=== PATIENT | male | born 2000 | race Caucasian/White ===

== ENCOUNTER 2019-03-12 20:10 | Observation (INO) ==
[2019-03-12] MEDS ORDERED: SODIUM CHLORIDE 0.9% 1000ML 1,000 ML IV ONE (20:30)
[2019-03-12] MEDS ORDERED: ACETAMINOPHEN 500 MG TAB PO STA (20:31)
[2019-03-12] MEDS ORDERED: KETOROLAC TROMETHAMINE 15 MG/ML VIAL IV STA (20:31)
[2019-03-12 20:51] LABS: Hematocrit (blood only) 42.8 % (42-52); Mean Corpuscular Hemoglobin 32.4 pg (25-34); Mean Corpuscular Volume 92.4 fL (80-100); Mean Platelet Volume 9.7 fL (7.4-10.4); Platelet Count 180 K/uL (130-400); RDW Coefficient of Variation 12.8 % (11.5-14.5); RDW Standard Deviation 43.1 fL (36.4-46.3); Red Blood Count 4.63 M/uL (4.7-6.1); White Blood Count 3.79 K/uL (4.8-10.8)
--- NOTE | 2019-03-12 20:58 | Emergency Department Note ---
Entered by Ariane Arzate acting as a scribe for Jax Negron MD History of Present Illness General Chief complaint: Illness Stated complaint: HAD MONO PAST MONTH Time Seen by Provider: 03/12/19 20:21 Source: patient History of Present Illness Onset (ago): day(s) 3 Location: mouth (throat) Severity: similar to prior episodes Pain Consistency: + other (worsening ) Maximum Pain Intensity: 5 Quality: + other (sore) Exacerbated By: + other (swallowing) Associated symptoms: + cough and + other (positive worsening fatigue; positive worsening congestion); no fever/chills The patient is a 18 year old male who presents to the Emergency Room with complaints of worsening sore throat that began 3 days prior to arrival. He states that this is similar to his previous sore throat when he had mononucleosis last month. The patient states that this pain is exacerbated with swallowing. The patient reports a cough during this time. The patient states that during this time he has had worsening fatigue and congestion. He denies a fever. The patient states that he has not been around anyone with similar symptoms. The patient reports that he is no longer on any antibiotics or steroids currently. The patient states that he was seen today at [facility] where his strep and flu test were negative. He was referred to the ED from [facility]. Home Medications Home Medications Medication Instructions Recorded Confirmed Type triamcinolone acetonide 0.025 % 1 appln TOP BID #80 gm 11/27/18 03/12/19 Rx topical cream dextromethorphan polistirex 10 ml PO Q12H PRN 03/12/19 03/12/19 History [Delsybernabe 12 hour] minocycline 50 mg PO BID 03/12/19 03/12/19 History vsrxnfskd-TB-rtpyowyq-guaifen 0 ml PO DIRECTED PRN 03/12/19 03/12/19 History [Lisette DayQuil Severe Cold-Flu] Allergies Allergy/AdvReac Type Severity Reaction Status Date / Time Penicillins Allergy Unknown Unknown Verified 03/12/19 20:58 Past Med/Surg History Medical History Mononucleosis Surgical History History of removal of cyst History of wisdom tooth extraction Family History Uncle Family history of melanoma Social History Preferred Language: Persian Feels Safe at Home: Yes Smoking Status: Current every day smoker Tobacco Type: e-cigarettes ; Hx Alcohol Use: Yes (Socially) Review of Systems See HPI for pertinent positives & negatives. and A total of 10 systems reviewed and were otherwise negative Physical Exam Vital Signs Vital Signs - 24 hr 03/12/19 20:11 03/12/19 22:00 Temperature 36.6 C Temperature Source Oral Pulse Rate 122 H Pulse Rate [Apical] 85 Pulse Rhythm Regular Pulse Strength Normal Respiratory Rate 22 18 Respiratory Effort / Characteristics Non-Labored Spontaneous Respiratory Depth Normal Blood Pressure 171/83 H Blood Pressure [Left Arm] 140/96 Blood Pressure Mean 112 Blood Pressure Mean [Left Arm] 110 Blood Pressure Position Sitting Pulse Oximetry 100 98 Oxygen Delivery Method Room Air Room Air Sepsis Recent Fever Within 48 Hours No Sepsis Action Taken by Nursing No Action Required GENERAL: Patient is in no acute distress. Voice is hoarse. HEENT: No acute trauma, normocephalic atraumatic, mucous membranes moist, no mild congestion, no scleral icterus. No throat erythema or exudate. TMs clear bilaterally. NECK: No stridor, no adenopathy, no meningismus, trachea is midline. No pain to move the trachea side to side. LUNGS: Clear to auscultation bilaterally, no wheeze, no rhonchi, breath sounds equal. HEART: Mildly tachycardic with regular rhythm. No murmurs. ABDOMEN: Soft, nontender, bowel sounds positive, no hernias, no peritonitis. EXTREMITIES: No cyanosis or edema, full range of motion of all the joints with out pain or difficulty, no signs for acute trauma. NEUROLOGIC: Oriented x 3, no acute motor or sensory deficits, no focal weakness. SKIN: No rash, no jaundice, no diaphoresis. Course Course 2023: Past medical records reviewed. The patient was evaluated in room B2. A complete history and physical exam was performed. 2204: I checked on and updated the patient. 2213: I discussed the case with pharmacy who will prepare medication to numb the patient's throat. 2229: I discussed the case with Dr. Eastman-Hematology Oncology who recommends that the patient be further evaluated by the hospitalist. 2234: I discussed the case with Dr. Toth-[facility] Hospitalist who accepts the patient for further evaluation. 2248: I checked on and updated the patient. He is in agreement with the treatment plan. The ED national secretary's are attempting to get some information from [facility] where he was recently admitted for mono. This will be helpful for comparison purposes. Administered Medications Lidocaine HCl 60 ml/Diphenhydramine HCl 150 mg/ Al Hydrox/Mg Hydrox/Simethicone 60 ml/ Glycerin 60 ml/ BARCODE IDENTIFIER 1 ea 0 ml MT QID PRN PRN Reason: MOUTH PAIN Stop: 04/11/19 22:14 Last Admin: 03/12/19 22:47 Dose: 10 ml Documented by: [id number] Discontinued Medications Acetaminophen (Tylenol) 1,000 mg PO NOW STA Stop: 03/12/19 20:32 Last Admin: 03/12/19 20:47 Dose: 1,000 mg Documented by: [id number] Dexamethasone Sodium Phosphate (Decadron Pf) 8 mg IV NOW ONE Stop: 03/12/19 22:12 Last Admin: 03/12/19 22:47 Dose: 8 mg Documented by: [id number] Sodium Chloride (Nss 1000ml) 1,000 mls @ 999 mls/hr IV .Q1H1M ONE Stop: 03/12/19 21:30 Last Infusion: 03/12/19 21:53 Dose: 0 mls/hr Documented by: [id number] Admin: 03/12/19 20:47 Dose: 999 mls/hr Documented by: [id number] Lactated Ringer's (Lr) 1,000 mls @ 999 mls/hr IV .Q1H1M STA Stop: 03/12/19 22:15 Last Admin: 03/12/19 22:21 Dose: 999 mls/hr Documented by: [id number] Ketorolac Tromethamine (Toradol) 15 mg IV NOW STA Stop: 03/12/19 20:32 Last Admin: 03/12/19 20:47 Dose: 15 mg Documented by: [id number] Medical Decision Making Differential Diagnosis Differential diagnoses include influenza, flu-like illness, pneumonia, bronchitis, sinusitis, URI, dehydration, and others were considered. Medical Records Attestation: I reviewed the patient's medical records. Home Medications Current Medication List: was personally reviewed by me Laboratory Data Attestation: I reviewed the patient's lab results. Result diagrams: 03/12/19 20:30 03/12/19 20:30 Lab Results 03/12/19 03/12/19 03/12/19 Range/Units 20:30 20:30 20:59 WBC 3.79 L (4.8-10.8) K/uL RBC 4.63 L (4.7-6.1) M/uL Hgb 15.0 (14.0-18.0) g/dL Hct 42.8 (42-52) % MCV 92.4 (80-100) fL MCH 32.4 (25-34) pg MCHC 35.0 (32-36) g/dL RDW Std Deviation 43.1 (36.4-46.3) fL RDW Coeff of Guillermo 12.8 (11.5-14.5) % Plt Count 180 (130-400) K/uL MPV 9.7 (7.4-10.4) fL Neutrophils % (Manual) 12.5 % Lymphocytes % (Manual) 49.1 % Reactive Lymphs % (Man) 22.3 % Monocytes % (Manual) 11.6 % Eosinophils % (Manual) 1.8 % Basophils % (Manual) 2.7 % Neutrophils # (Manual) 0.47 L (1.4-6.5) K/uL Total Absolute Neuts 0.47 L* (1.4-6.5) K/uL Lymphocytes # (Manual) 1.86 (1.2-3.4) K/uL Reactive Lymphs # 0.85 K/uL Total Abs Lymphocytes 2.71 (1.2-3.4) K/uL Monocytes # (Manual) 0.44 (0.11-0.59) K/uL Eosinophils # (Manual) 0.07 (0-0.5) K/uL Basophils # (Manual) 0.10 (0-0.2) K/uL Sodium 139 (136-145) mmol/L Potassium 3.4 L (3.5-5.1) mmol/L Chloride 104 (98-107) mmol/L Carbon Dioxide 30 (21-32) mmol/L Anion Gap 5.0 (3-11) BUN 12 (7-18) mg/dl Creatinine 1.06 (0.6-1.4) mg/dl Est Cr Clr Drug Dosing 116.7 ml/min Est GFR ( Amer) 117.3 Est GFR (Non-Af Amer) 101.2 BUN/Creatinine Ratio 11.0 (10-20) Glucose 105 H (70-99) mg/dl Calcium 9.2 (8.5-10.1) mg/dl Magnesium 2.0 (1.8-2.4) mg/dl Total Bilirubin 0.4 (0.2-1) mg/dl AST 21 (15-37) U/L ALT 37 (12-78) U/L Alkaline Phosphatase 96 (45-117) U/L Total Protein 8.6 H (6.4-8.2) gm/dl Albumin 3.8 (3.4-5.0) gm/dl Globulin 4.8 H (2.5-4.0) gm/dl Albumin/Globulin Ratio 0.8 L (0.9-2) Influenza Type A (PCR) Neg for Influ A (Neg) Influenza Type B (PCR) Neg for Influ B (Neg) Imaging Data Radiologist's Impression: Radiology results as stated below per my review and the radiologist's interpretation: XR soft tissue neck TECHNIQUE: AP and lateral soft tissue neck FINDINGS: Normal prevertebral soft tissues. No distention of the hypopharynx. The epiglottis is normal. IMPRESSION: Normal study. ACT 112: Negative or not required by law. The above report was generated using voice recognition software. It may contain grammatical, syntax or spelling errors. Electronically signed by: Chandu Ramos M.D. 03/12/2019 9:17 PM XR chest 1V portable CLINICAL HISTORY: cough dyspnea COMPARISON STUDY: No previous studies for comparison. FINDINGS: The bones soft tissues and hemidiaphragms are normal. The cardiomediastinal silhouette is normal. The lungs are clear. The pulmonary vasculature is normal. IMPRESSION: Negative chest. ACT 112: Negative or not required by law. The above report was generated using voice recognition software. It may contain grammatical, syntax or spelling errors. Electronically signed by: Chandu Ramos M.D. 03/12/2019 9:16 PM Blood Pressure Blood Pressure Findings: Elevated blood pressure Blood Pressure Disposition: further management by hospitalist MDM Narrative There is no leukocytosis, in fact, the white count is low. The white blood cell count differential shows evidence for neutropenia. No anemia. There was a normal platelet count. No significant electrolyte abnormality or kidney failure. No worrisome liver enzyme elevation. Influenza testing via PCR was negative. Chest film did not show pneumonia or CHF. Soft tissue neck film did not show any evidence for epiglottitis or significant airway narrowing. On exam, the patient had a hoarse sounding voice. He was not toxic, he was not febrile. He was slightly tachycardic upon arrival. Patient received IV saline 1 L, he was then given 1 L of lactated Ringer's. He was given IV Toradol, IV Decadron and oral Tylenol. He seems to be resting comfortably. I did speak with the chip loft worker motion picture scene builder because of the neutropenia. A hosp ital stay for further work-up was felt warranted. The cause for the neutropenia is unclear. Given his current viral illness and his recent mono diagnosis, this may all just be viral suppression. Leukemia is a thought of course. I did speak to the patient, I talked with case management. The on-call hospitalist was consulted. Impression & Plan Neutropenia, Flu-like symptoms, Acute sore throat, Acute dehydration, Tachycardia Discharge Plan Visit Data Chief Complaint: Illness Stated Complaint: HAD MONO PAST MONTH ED Provider: Jax Negron Discharge Problem: Neutropenia, Flu-like symptoms, Acute sore throat, Acute dehydration, Tachycardia Patient Disposition: Being Evaluated by Hospitalist Condition: Good Forms Stand Alone Forms: Work/School Release (ED), My [facility], Important Visit Information Prescriptions Prescriptions: No Action triamcinolone acetonide 0.025 % cream 1 appln TOP BID Qty: 80 RF: 0 dextromethorphan polistirex [Delsym 12 hour] 30 mg/5 mL Suspension,Extended Rel 12 Hr 10 ml PO Q12H PRN (Reason: Cough) RF: 0 minocycline 50 mg Tablet 50 mg PO BID RF: 0 Vicks DayQuil Severe Cold-Flu 0-59-537-200 mg/15 mL Liquid 0 ml PO DIRECTED PRN (Reason: Cold/Flu Symptoms) RF: 0 Referrals Referrals: [place] [Primary Care Provider] - Discharge Problem: Neutropenia Qualifiers: Neutropenia type: unspecified Qualified Code(s): D70.9 - Neutropenia, unspecified The scribe's documentation has been prepared under my direction and personally reviewed by me in its entirety. I confirm that the note above accurately reflects all work, treatment, procedures, and medical decision making performed by me.
[2019-03-12 21:08] LABS: Albumin Level 3.8 gm/dl (3.4-5.0); Calcium 9.2 mg/dl (8.5-10.1); Creatinine Clr Calc Pharmacy 116.7 ml/min; Est GFR (African American) 117.3; Est GFR (Non-African American) 101.2; Potassium 3.4 mmol/L (3.5-5.1)
[2019-03-12 21:10] LABS: Albumin Globulin Ratio 0.8 (0.9-2); Bilirubin,Total 0.4 mg/dl (0.2-1); Globulin 4.8 gm/dl (2.5-4.0); Total Protein 8.6 gm/dl (6.4-8.2)
[2019-03-12] MEDS ORDERED: LACTATED RINGER'S 1,000 ML IV STA (21:15)
--- NOTE | 2019-03-12 21:17 | XRay Report ---
XR chest 1V portable CLINICAL HISTORY: cough dyspnea COMPARISON STUDY: No previous studies for comparison. FINDINGS: The bones soft tissues and hemidiaphragms are normal. The cardiomediastinal silhouette is n ormal. The lungs are clear. The pulmonary vasculature is normal. IMPRESSION: Negative chest. ACT 112: Negative or not required by law. The above report was generated using voice recognition software. It may contain grammatical, syntax or spelling errors. Electronically signed by: Chandu Ramos M.D. 03/12/2019 9:16 PM
--- NOTE | 2019-03-12 21:18 | XRay Report ---
XR soft tissue neck TECHNIQUE: AP and lateral soft tissue neck FINDINGS: Normal prevertebral soft tissues. No distention of the hypopharynx. The epiglottis is deniz l. IMPRESSION: Normal study. ACT 112: Negative or not required by law. The above report was generated using voice recognition software. It may contain grammatical, syntax or spelling errors. Electronically signed by: Chandu Ramos M.D. 03/12/2019 9:17 PM
[2019-03-12 21:43] LABS: Influenza A virus by PCR Neg for Influ A (Neg); Influenza B virus by PCR Neg for Influ B (Neg)
[2019-03-12] MEDS ORDERED: DEXAMETHASONE **PF** INJ 10 MG/ML VIAL IV ONE (22:11)
[2019-03-12] MEDS ORDERED: Magic Swizzle w/Glycerin 240mL MT PRN (22:15)
[2019-03-12 22:22] LABS: ALC (manual) 2.71 K/uL (1.2-3.4); ANC (manual) 0.47 K/uL (1.4-6.5); Basophils % (manual) 2.7 %; Eosinophils # (manual) 0.07 K/uL (0-0.5); Eosinophils % (manual) 1.8 %; Lymphocytes # (manual) 1.86 K/uL (1.2-3.4); Lymphocytes % (manual) 49.1 %; Monocytes # (manual) 0.44 K/uL (0.11-0.59); Monocytes % (manual) 11.6 %; Neutrophils # (manual) 0.47 K/uL (1.4-6.5); Neutrophils % (manual) 12.5 %; Reactive Lymphocytes # (manual) 0.85 K/uL; Reactive Lymphocytes % (manual) 22.3 %
[2019-03-13] MEDS ORDERED: KETOROLAC TROMETHAMINE 15 MG/ML VIAL IV PRN (00:44)
[2019-03-13] MEDS ORDERED: ONDANSETRON INJ 2 MG/ML 2 ML VIAL IV PRN (00:44)
[2019-03-13] MEDS ORDERED: BENZONATATE 100 MG CAPSULE PO PRN (00:44)
[2019-03-13] MEDS ORDERED: POLYETHYLENE (MIRALAX) 17 GM PACK PO PRN (00:44)
[2019-03-13] MEDS ORDERED: ACETAMINOPHEN 325 MG TAB PO PRN (00:44)
--- NOTE | 2019-03-13 01:13 | History & Physical Report ---
Date of Service March 13, 2019 Assessment & Plan (1) Neutropenia: 18 yo male presents with recent diagnosis of mononucleosis n February presents with URI symptoms over the past 4 days. These symptoms likely represent infection of viral URI. Influenza and rapid strep were both negative. The patient was found to be neutropenic. ED physician discussed findings with hematology who recommended admission with consultation Neutropenia - Likely infectious in the setting of recent EBV infection. No offending medications. - Hematology Consulted, appreciate recs. per ED, recommended admission - Peripheral smear ordered, AM CBC - Neutropenic precautions Viral URI, pharyngitis - Given decadron, toradolol in the ED - Tx supportively--mucinex, tessalon perles, toradolol Q6H PRN DVT - SCD's/ambulate Code Status - Full FEN - Received fluid bolus in ED, 1L LR, 1L NS - Encourage PO, regular diet (2) Flu-like symptoms: (3) Acute sore throat: (4) Acute dehydration: (5) Tachycardia: History of Present Illness Primary Care Provider: [facility] 18 yo male with a recent history of mono presents with URI symptoms for the past 4 days. Symptoms include sore throat, hoarseness and productive cough. He states that he was diagnosed with mono at the beginning of February after having symptoms of fatigue, fever and sore throat weeks prior to diagnosis. He noted an improvement of symptoms throughout the month of February. Allergies Allergy/AdvReac Type Severity Reaction Status Date / Time Penicillins Allergy Unknown Unknown Verified 03/12/19 20:58 Home Medications Home Medications Medication Instructions Recorded Confirmed Type triamcinolone acetonide 0.025 % 1 appln TOP BID #80 gm 11/27/18 03/12/19 Rx topical cream Vicks DayQuil Severe Cold-Flu 0 ml PO DIRECTED PRN 03/12/19 03/12/19 History dextromethorphan polistirex 10 ml PO Q12H PRN 03/12/19 03/12/19 History [Delsym 12 hour] minocycline 50 mg PO BID 03/12/19 03/12/19 History Past Med/Surg History Medical History Mononucleosis Surgical History History of removal of cyst History of wisdom tooth extraction Family History Uncle Family history of melanoma Social History Preferred Language: Romanian Communication Ability: Effective Wheel Adjuster Required: No Beliefs That Will Affect Care: None Current Living Situation: Other Current Living Situation Comment: Roomates Other Information That Helps Us Care for You: No Feels Safe at Home: Yes Safety Concerns: Feels Safe At This Time Smoking Status: Never smoker Tobacco Type: e-cigarettes ; Do You Dip or Chew Tobacco: No ; Second Hand Exposure: No ; Hx Alcohol Use: Yes Alcohol type: beer and hard liquor Hx Substance Use: No Review of Systems Constitutional: + body aches and + fatigue; no fever and no sweats Ear, Nose, Mouth, Throat: + nasal congestion, + sore throat and + hoarseness; no ear pain Respiratory: + cough and + chest congestion; no dyspnea, no dyspnea on exertion and no wheezing Cardiovascular: no chest pain and no palpitations Gastrointestinal: no nausea, no vomiting and no diarrhea/loose stools Genitourinary: no dysuria and no urinary frequency Physical Exam Constitutional: WD/WN, vitals as above Eyes: PERRL, conjunctivae normal, anicteric sclerae ENMT: mild erythema of posterior pharynx, red boggy nasal mucosa Neck: trachea midline, no thyromegaly Respiratory: normal respiratory effort, lungs clear to auscultation Cardiovascular: RRR, no murmur, no edema Gastrointestinal (Abdomen): normal bowel sounds, soft, nontender, no hepatosplenomegaly Musculoskeletal: no cyanosis or clubbing, extremities motor strength 5/5 Skin: no rashes, warm and dry Neurologic: PERRL, EOMI, accommodation nl, no face palsy, no dysarthria Psychiatric: A+Ox3, euthymic affect Results & Data Vital Signs (Past 12 Hours) Vital Signs Temp Pulse Pulse Resp BP BP Pulse Ox 03/12/19 23:53 100 H 18 154/88 H 98 03/12/19 22:00 85 18 140/96 98 03/12/19 20:11 36.6 C 122 H 22 171/83 H 100 Code Status & VTE Plan VTE Prophylaxis Plan VTE Prophylaxis will be ordered: Yes Supervising Physician Co-Signing Physician Notes Attending addendum: I have physically seen this patient, have supervised the medical residents activities, and agree with the H&P unless as otherwise noted. Assessment and Plan: Neutropenia- ANC 470. History of mono 1 month ago. Most likely viral etiology. Hematology consult over the phone by ED requested patient be admitted to medicine overnight. Admit patient to medical floor. Repeat laboratories in a.m. Status post Decadron and Toradol in the ED. Will not repeat at this time. Continue with IV fluid rehydration. Remainder of orders and notations as noted. Resident Activity Tracking Resident Involvement: Resident Care Provided Care Provided: Adult [facility] Medicine (1) Neutropenia Neutropenia type: unspecified Qualified Code(s): D70.9 - Neutropenia, unspecified
[2019-03-13 01:30] LABS: Hematocrit (blood only) 40.3 % (42-52); Hemoglobin 13.8 g/dL (14.0-18.0); Mean Corpuscular Hemoglobin 31.6 pg (25-34); Mean Corpuscular Hgb Conc 34.2 g/dL (32-36); Mean Corpuscular Volume 92.2 fL (80-100); Mean Platelet Volume 9.7 fL (7.4-10.4); Platelet Count 185 K/uL (130-400); RDW Coefficient of Variation 12.7 % (11.5-14.5); RDW Standard Deviation 42.8 fL (36.4-46.3); Red Blood Count 4.37 M/uL (4.7-6.1)
[2019-03-13 01:47] LABS: BUN Creatinine Ratio 11.2 (10-20); Est GFR (African American) 144.3; Est GFR (Non-African American) 124.5; Potassium 3.9 mmol/L (3.5-5.1)
[2019-03-13 02:11] LABS: ALC (manual) 1.39 K/uL (1.2-3.4); ANC (manual) 0.38 K/uL (1.4-6.5); Basophils # (manual) 0.06 K/uL (0-0.2); Basophils % (manual) 2.7 %; Eosinophils # (manual) 0.02 K/uL (0-0.5); Eosinophils % (manual) 0.9 %; Lymphocytes # (manual) 0.96 K/uL (1.2-3.4); Lymphocytes % (manual) 45.5 %; Monocytes # (manual) 0.25 K/uL (0.11-0.59); Monocytes % (manual) 11.8 %; Neutrophils # (manual) 0.38 K/uL (1.4-6.5); Neutrophils % (manual) 18.2 %; Reactive Lymphocytes # (manual) 0.44 K/uL; Reactive Lymphocytes % (manual) 20.9 %
[2019-03-13 06:43] LABS: Hematocrit (blood only) 43.5 % (42-52); Hemoglobin 14.9 g/dL (14.0-18.0); Mean Corpuscular Hemoglobin 31.6 pg (25-34); Mean Corpuscular Hgb Conc 34.3 g/dL (32-36); Mean Corpuscular Volume 92.4 fL (80-100); Mean Platelet Volume 9.3 fL (7.4-10.4); Platelet Count 186 K/uL (130-400); RDW Coefficient of Variation 12.6 % (11.5-14.5); RDW Standard Deviation 42.3 fL (36.4-46.3); Red Blood Count 4.71 M/uL (4.7-6.1); White Blood Count 2.25 K/uL (4.8-10.8)
[2019-03-13 07:15] LABS: BUN Creatinine Ratio 11.5 (10-20); Calcium 9.1 mg/dl (8.5-10.1); Creatinine Clr Calc Pharmacy 127.8 ml/min; Est GFR (African American) 137.4; Est GFR (Non-African American) 118.6; Potassium 4.4 mmol/L (3.5-5.1)
[2019-03-13 07:31] LABS: RBC Morphology Unremarkable
[2019-03-13 07:33] LABS: ALC (manual) 1.42 K/uL (1.2-3.4); ANC (manual) 0.53 K/uL (1.4-6.5); Basophils # (manual) 0.08 K/uL (0-0.2); Basophils % (manual) 3.5 %; Lymphocytes # (manual) 0.53 K/uL (1.2-3.4); Lymphocytes % (manual) 23.7 %; Monocytes # (manual) 0.22 K/uL (0.11-0.59); Monocytes % (manual) 9.6 %; Neutrophils # (manual) 0.53 K/uL (1.4-6.5); Neutrophils % (manual) 23.7 %; Reactive Lymphocytes # (manual) 0.89 K/uL; Reactive Lymphocytes % (manual) 39.5 %
[2019-03-13] MEDS ORDERED: guaiFENesin 600 MG TABCR PO SCH (09:00)
[2019-03-13] MEDS ORDERED: CHLORASEPTIC 1.4% SOLN 180 ML BTL MT ONE (12:02)
--- NOTE | 2019-03-13 12:14 | Discharge Summary ---
Date of Service March 13, 2019 Admission HPI Per Admitting Provider 18 yo male with a recent history of mono presents with URI symptoms for the past 4 days. Symptoms include sore throat, hoarseness and productive cough. He states that he was diagnosed with mono at the beginning of February after having symptoms of fatigue, fever and sore throat weeks prior to diagnosis. He noted an improvement of symptoms throughout the month of February. Principal Diagnosis Pt states he feels about the same as on admission, but he would like to go home. He is having throat pain, particularly with swallowing, but he is still able to eat. No n/v. No SOB. He is hoarse today, but this is not new. Pt denies fever, SOB, chest pain, abd pain, c/d, LE pain or swelling. Discharge Exam Constitutional WD/WN, vitals as above Eyes normal visual abbott by confrontation and + anicteric sclerae ENMT hoarse voice Neck normal visual inspection and trachea midline Respiratory normal respiratory effort, lungs clear to auscultation Cardiovascular Rate/Rhythm: regular rate and regular rhythm Gastrointestinal (Abdomen) Inspection/Auscultation: abdomen not distended Percussion/Palpation: abdomen soft; abdomen nontender Musculoskeletal Head/Neck/Chest: normocephalic and head atraumatic Skin no rashes, warm and dry Neurologic awake; not confused Speech / Cognition: normal speech Psychiatric A+Ox3, euthymic affect Discharge Data Allergies Allergy/AdvReac Type Severity Reaction Status Date / Time Penicillins Allergy Unknown Unknown Verified 03/12/19 20:58 Consultations 03/12/19 22:50 ED Decision to Admit Stat 03/13/19 00:44 Consult Hematology Routine 03/13/19 12:06 Consult Health Information Management Routine Hospital Course (1) Neutropenia: Likely related to recent mono status Seen by Dr. Eastman Requesting prior lab data from outside facility CMV, EBV, parvo pending CBC on 03/15 F/U with Dr. Eastman as outpt (2) Flu-like symptoms: URI Flu neg CXR neg Neck XR soft tissue neg (3) Acute sore throat: Chloraseptic spray PRN Advised to minimize use of cough suppressant (4) Acute dehydration: s/p IVF Tolerating PO Total Time Total Time Spent Total Time Spent (In Minutes): >30 Total Time Includes: Examination of the Patient, Discharge Planning, Medication Reconciliation, Communication With Other Providers and Other Discharge Plan Discharge Items Patient Disposition: Home - Self-Care Reason For Visit: NEUTROPENIA, VIRAL ILLNESS Discharge Diagnosis: Viral illness Condition on Discharge: Good Activity: Resume your previous activity Non-emergency contact: Primary Care Provider Call non-emergency contact if: you have any medication questions, your symptoms worsen and you have a fever Follow-up/Referrals: [facility] [Primary Care Provider] - Diet: Regular Addtl Attending Provider Instructions: You should avoid use of e-cigarettes in general, but particularly while you are ill as this will be irritating to your throat and lungs You need to have labs drawn on Monday You will need to follow up with Dr. Eastman. Their office will call you to schedule this appt. Pending Studies at Discharge: Yes Studies:: EBV, CMV, parvo panels Stand-Alone Forms: My [facility], Smoking Cessation Medications and DC Order Prescriptions: Continued triamcinolone acetonide 0.025 % cream 1 appln TOP BID Qty: 80 RF: 0 dextromethorphan polistirex [Delsym 12 hour] 30 mg/5 mL Suspension,Extended Rel 12 Hr 10 ml PO Q12H PRN (Reason: Cough) RF: 0 minocycline 50 mg Tablet 50 mg PO BID RF: 0 Vicks DayQuil Severe Cold-Flu 9-42-110-200 mg/15 mL Liquid 0 ml PO DIRECTED PRN (Reason: Cold/Flu Symptoms) RF: 0 Discharge Orders: Discharge Order (Routine); Ordered 03/13/19 Ordered By: Aissatou Schroeder/Other Patient Handouts: Sore Throats Self Care Admission Data Admit Date/Time: 03/12/19 23:28 Attending Provider: Aissatou Lo Admit Provider: Amrit Cortez Primary Care Provider: [facility] Other Providers: Chapo Eastman ; Sulaiman Toth Other Interventions: Discharge Summary Assessment (RN) Last Done: 03/13/19 12:35 DC Date/Time DO NOT enter until pt leaves facility: 03/13/19 14:43
--- NOTE | 2019-03-14 08:18 | Oncology Consultation ---
Date of Consultation March 13, 2019 Assessment & Plan (1) Neutropenia: Mr. Elizondo had mononucleosis about 5-6 weeks ago. He was starting to feel better, but recovery from mono can take time. That being said, while mono can cause neutropenia, it also typically causes a lymphocytosis. His lymphs are normal and he does have atypical lymphs, which would support a diagnosis of mono. However, I would check serologies for other viral infections. He did not have a flu shot, though his Flu A and B titers were negative. He is not taking any new medications or other supplements to cause a drug-induced agranulocytosis. His differential and smear did not reveal any immature marrow forms or blasts to suggest a leukemia. His normal hemoglobin and platelets also argue strongly against such a diagnosis. I would like to watch his counts and will make arrangements for him to have a CBC in my office later this week or early next week. Present on Admission?: Yes History of Present Illness Attending Physician: Aissatou Lo, DO History of Present Illness Mr. Elizondo is a 18 year old man with little past medical history. About 6 weeks ago, he was diagnosed with mono. He eventually had to leave school and head home for a time to recover. He saw some physicians there, who confirmed the diagnosis. He's been profoundly fatigued and weak. He also had a sore throat and cervical lymphadenopathy. Per his recollection, his symptoms were improving until about a week or two ago, when he started to feel worse again. He came to the ER yesterday with worsening upper respiratory symptoms, including cough and hoarseness, and worsening fatigue. He denied any fevers or sweats. He also denied any rashes or bleeding. He is not aware of any sick contacts and was mostly avoiding people during the time he was sick. He denied any shortness of breath, diarrhea, abdominal pain, or chest pain. He feels as though his lymph nodes have gone down. Allergies Allergy/AdvReac Type Severity Reaction Status Date / Time Penicillins Allergy Unknown Unknown Verified 03/12/19 20:58 Home Medications Home Medications Medication Instructions Recorded Confirmed Type triamcinolone acetonide 0.025 % 1 appln TOP BID #80 gm 11/27/18 03/12/19 Rx topical cream Vicks DayQuil Severe Cold-Flu 0 ml PO DIRECTED PRN 03/12/19 03/12/19 History dextromethorphan polistirex 10 ml PO Q12H PRN 03/12/19 03/12/19 History [Delsym 12 hour] minocycline 50 mg PO BID 03/12/19 03/12/19 History Patient History Medical History Mononucleosis Surgical History History of removal of cyst History of wisdom tooth extraction Family History Uncle Family history of melanoma Social History Preferred Language: Citizen Of The [place] Communication Ability: Effective 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 Beliefs That Will Affect Care: None Current Living Situation: Other Current Living Situation Comment: Roomates Other Information That Helps Us Care for You: No Feels Safe at Home: Yes Safety Concerns: Feels Safe At This Time Smoking Status: Never smoker Tobacco Type: e-cigarettes ; Do You Dip or Chew Tobacco: No ; Second Hand Exposure: No ; Hx Alcohol Use: Yes Alcohol type: beer and hard liquor Hx Substance Use: No Review of Systems Review of Systems: All systems reviewed & are unremarkable except as noted in HPI & below Physical Exam Constitutional: healthy appearing and comfortable; no acute distress ENMT: external ear and nose normal, oropharynx normal Respiratory: normal respiratory effort, lungs clear to auscultation Cardiovascular: Rate/Rhythm: regular rhythm and + tachycardic Gastrointestinal (Abdomen): Inspection/Auscultation: normal bowel sounds; abdomen not distended Percussion/Palpation: abdomen soft; abdomen nontender Skin: no rashes, warm and dry Psychiatric: A+Ox3, euthymic affect Lymphatic: no cervical or axillary lymphadenopathy Results & Data Vital Signs (Past 12 Hours) Temp Pulse Resp BP Pulse Ox 36.4 C L 118 H 16 153/72 H 100 03/13/19 07:37 03/13/19 07:37 03/13/19 07:37 03/13/19 07:37 03/13/19 07:37 Laboratory Results Abnormal Labs 03/12/19 03/12/19 03/13/19 20:30 20:30 00:52 WBC 3.79 L RBC 4.63 L Hgb Hct Neutrophils # (Manual) 0.47 L Total Absolute Neuts 0.47 L* Lymphocytes # (Manual) Potassium 3.4 L Chloride 109 H Anion Gap Glucose 105 H 104 H Total Protein 8.6 H Globulin 4.8 H Albumin/Globulin Ratio 0.8 L 03/13/19 03/13/19 03/13/19 00:53 06:24 06:24 WBC 2.10 L 2.25 L RBC 4.37 L Hgb 13.8 L Hct 40.3 L Neutrophils # (Manual) 0.38 L 0.53 L Total Absolute Neuts 0.38 L* 0.53 L* Lymphocytes # (Manual) 0.96 L 0.53 L Potassium Chloride 108 H Anion Gap 2.0 L Glucose 116 H Total Protein Globulin Albumin/Globulin Ratio (1) Neutropenia Neutropenia type: unspecified Qualified Code(s): D70.9 - Neutropenia, unspecified
[2019-03-14 11:46] LABS: EBV Nuclear Ag Antibody <18.00 U/mL
[2019-03-16 21:48] LABS: CMV IgG Antibody <0.60 U/mL; CMV IgM Antibody <30.00 AU/mL; Parvovirus B19 Qual Source Serum; Parvovirus B19 Qualitative Not Detected (Not Detected); Parvovirus IgG 6.3 (<0.9); Parvovirus IgM 0.4 (<0.9)
== END 2019-03-13 14:43 | disposition home or self-care (01) ==
LOC: ED 20:10 → 3W 20:10 → SUATTDRO 23:28 → 3W 03-13